=== PATIENT | male | born 1995 | race Caucasian/White ===

== ENCOUNTER 2020-08-21 21:45 | Emergency (ER) | payer SELFPAY ==
[~2020-08-21] VITALS: Ht 160 cm; Wt 74.8 kg
[2020-08-21 21:45] VITALS: BP 151/93
[2020-08-22 05:08] VITALS: BP 105/73
== END 2020-08-22 05:08 | disposition home or self-care (01) ==
LOC: MED 21:45
DX: F10.129 Alcohol abuse with intoxication, unspecified (principal); R41.82 Altered mental status, unspecified; Y90.9 Presence of alcohol in blood, level not specified
CPT/HCPCS: 99285